=== PATIENT | male | born 1980 | race Caucasian/White ===

== ENCOUNTER 2018-10-14 14:12 | Outpatient (CLI) | payer BC ==
--- NOTE | 2018-10-15 14:01 | MRI ---
MRI OF THE LUMBAR SPINE 10/14/18 COMPARISON: None. HISTORY: Low back pain radiating down the right hip, radiculopathy. TECHNIQUE: Multiplanar and multisequence MR imaging of the lumbar spine obtained without contrast. FINDINGS: The sagittal STIR imaging demonstrates no focal area of osseous marrow edema. There is no anterolisth esis or retrolisthesis seen within the lumbar spine. Assuming five lumbar type vertebral bodies, the conus medullaris terminates at T12-L1. T12-L1: Intervertebral disc height and signal intensity within normal limits with no central canal or neural foraminal stenosis. L1-2: Mild bilateral facet hypertrophy. Intervertebral disc height and signal intensity within normal limits with no central canal or neural foraminal stenosis. L2-3: Mild bilateral facet hypertrophy. Intervertebral disc height and signal intensity within normal limits with no significant central canal or neural foraminal stenosis. L3-4: Mild bilateral facet hypertrophy. Intervertebral disc height and signal intensity within normal limits with no central canal or neural foraminal stenosis. L4-5: There is disc space narrowing and disc desiccation and disc bulge with a large central/sight pa racentral disc herniation. Disc herniation measures approximately 1.1 cm AP dimension and 1.6 cm cran iocaudal dimension. There is moderate associated central canal stenosis/right lateral recess stenosis . Mild bilateral facet hypertrophy with mild bilateral neural foraminal stenosis, right greater than left. L5-S1: Mild disc space narrowing. No significant central canal or neural foraminal stenosis. Imaged retroperitoneal structures demonstrate a tiny T2 hyperintensity within the right kidney measur ing 7 mm, too small to characterize, likely representing a cyst. IMPRESSION: Disc herniation at L4-5 with associated central canal and neural foraminal stenosis as detailed above . POS: [facility]
== END 2018-10-14 14:13 | disposition home or self-care (01) ==
LOC: SCSMRI 14:12
PROVIDERS: ATTEND Family Medicine
DX: M51.16 Intervertebral disc disorders with radiculopathy, lumbar region (principal); M48.061 Spinal stenosis, lumbar region without neurogenic claudication
CPT/HCPCS: 72148

== ENCOUNTER 2019-03-19 09:09 | Outpatient (CLI) | payer BC ==
--- NOTE | 2019-03-19 09:29 | RAD ---
XR Lumbar Spine 2 Or 3 View: 03/19/2019 12:00 AM Lumbar back pain with right-sided leg pain for 2 year COMPARISON: MR lumbar spine dated October 14, 2018 FINDINGS: Fracture: None. Alignment: Spinal alignment appears within normal limits. No abnormal translational motion demonstrated. Degenerative Change: Mild facet osteoarthrosis and disc degenerative disease of the lower lumbar spi ne most pronounced at L4-5 and L5-S1. Bone Mineralization:Normal Soft tissues: No acute abnormality. IMPRESSION: Mild spondylosis of the lumbar spine. No abnormal translational motion.
== END 2019-03-19 09:10 | disposition home or self-care (01) ==
LOC: TBSIIMAG 09:09
PROVIDERS: ATTEND Neurological Surgery
DX: M51.26 Other intervertebral disc displacement, lumbar region (principal); M47.816 Spondylosis without myelopathy or radiculopathy, lumbar region
CPT/HCPCS: 72100

== ENCOUNTER 2019-03-23 18:00 | Outpatient (CLI) | payer BC | END 2019-03-23 18:01 | disposition home or self-care (01) | LOC: SLEEPLAB 18:00 | PROVIDERS: ATTEND Internal Medicine Critical Care Medicine | DX: G47.33 Obstructive sleep apnea (adult) (pediatric) (principal); G31.84 Mild cognitive impairment of uncertain or unknown etiology; E66.9 Obesity, unspecified; Z68.31 Body mass index [BMI] 31.0-31.9, adult | CPT/HCPCS: 95806 ==

== ENCOUNTER 2019-04-14 08:41 | Outpatient (CLI) | payer BC ==
[2019-04-14 17:04] LABS: Hemoglobin 15.8 g/dL (14.0-18.0); Mean Corpuscular HGB CONC 34.3 g/dL (32.0-36.0); Mean Corpuscular Hemoglobin 30.2 pg (27.0-31.0); Mean Corpuscular Volume 88.1 fL (78.0-98.0); Mean Platelet Volume 8.3 fL (7.4-10.4); Platelet Count 281 thou/uL (130-400); RBC Distribution Width 11.9 % (11.5-14.5); Red Blood Cell (RBC) Count 5.22 mill/uL (4.70-6.10); White Blood Cell (WBC) Count 8.7 thou/uL (4.8-10.8)
[2019-04-14 17:11] LABS: INR-International Normal Ratio 0.9; PTT 28.4 SEC (22.9-36.1); Prothrombin Time 12.5 SEC (12.0-14.7)
== END 2019-04-14 08:42 | disposition home or self-care (01) ==
LOC: LABBT 08:41
PROVIDERS: ATTEND Neurological Surgery
DX: Z01.812 Encounter for preprocedural laboratory examination (principal); M51.26 Other intervertebral disc displacement, lumbar region
CPT/HCPCS: 85027; 85610; 85730

== ENCOUNTER 2019-04-16 10:42 | Day surgery (SDC) | payer BC ==
[2019-04-14 15:41] VITALS: BMI 32.5
--- NOTE | 2019-04-15 11:48 | HP ---
CHIEF COMPLAINT: I am here for back surgery. HISTORY OF PRESENT ILLNESS: A 38-year-old male with 22 months history of back and right leg pain. States he has difficulty standing upright or walking any distance. Oral steroids, physical therapy has helped, but the pain has returned. He had another flare-up last spring, resulting in spine injections and physical therapy which helped and now has no longer helped. Denies left leg pain. There are no bowel or bladder issues. Pain follows L5 to the foot on the right. It is much worse standing and sitting or bending over. REVIEW OF SYSTEMS: CONSTITUTIONAL: Denies fever, chills, weight loss, night sweats, or loss of energy. HEENT: Denies double vision, blurred vision, or difficulty swallowing. CARDIOVASCULAR/RESPIRATORY: Denies chest pain, shortness of breath, or cough. GASTROINTESTINAL: Denies indigestion, vomiting, or black stool. GENITOURINARY: Denies burning urination, blood in urine, or incontinence. MUSCULOSKELETAL: Right leg pain. NEUROLOGIC: Right leg numbness. PSYCHIATRY: Denies anxiety, hallucinations, or personal changes. PAST MEDICAL HISTORY: Abdominal pain with urination, digestive issues, microhematuria. PAST SURGICAL HISTORY: Oral, ingrown toenail. FAMILY HISTORY: Father alive. Mother alive. Siblings alive. Paternal grandfather alive. Paternal grandmother alive. Maternal grandfather alive. Maternal grandmother alive. One brother and one sister, healthy. SOCIAL HISTORY: Nonsmoker. Does not drink alcohol. Does not use drugs. MEDICATIONS: 1. Pepto-Bismol. 2. Claritin. 3. Sudafed. 4. Mucinex. 5. Tylenol. PHYSICAL EXAMINATION: VITAL SIGNS: Weight 37, height 71 inches. NEUROLOGIC: Cranial nerves are intact. CEREBELLAR EXAM: There is no truncal ataxia. Gait and station are normal. Toe-heel and tandem walking are performed smoothly without weakness or apraxia. Motor exam, there is normal strength in the iliopsoas, quadriceps, hamstrings, anterior tib, gastroc, and toes flexors. EHL weaker on the right. Sensory exam , there is no dermatomal hypoactive and symmetric knees, ankles. No Babinski. No clonus. ASSESSMENT: Lumbar radiculopathy and intervertebral disk disorder with radiculopathy of the lumbar region. IMAGING STUDIES: MRI shows a very large HNP at L4-5 in canal and eccentric to right. Lots of stretch of the L5 root. PLAN: Laminectomy and microdiscectomy at levels L4-L5. INFORMED CONSENT: We discussed the indications, risks, benefits, alternatives, and expected results from surgery. The risks discussed include, but were not limited to bleeding, infection, CSF leak, nerve damage, weakness, incontinence, cauda equina injury, paralysis, ventilator dependence, wheelchair dependence, loss of vision, cardiopulmonary complications of anesthesia, or . Long-term complications discussed included, but were not limited to, spinal instability and future surgery. He understands the risk, and he is willing to proceed. Job ID: [id number] [facility]
[2019-04-16] MEDS ORDERED: PROPOFOL 200 MG/20 ML VIAL ONE (10:49)
[2019-04-16] MEDS ORDERED: Rocuronium Bromide 10 MG/ML (10ML VIAL) ONE (10:49)
[2019-04-16] MEDS ORDERED: Ondansetron PF 4 MG/2 ML Vial ONE ×2 (10:49→17:41)
[2019-04-16] MEDS ORDERED: Lidocaine 1% PF 5 ML VIAL ONE (10:49)
[2019-04-16] MEDS ORDERED: Glycopyrrolate 0.2 MG/ML 5 ML SYRINGE ONE (10:49)
[2019-04-16] MEDS ORDERED: Dexamethasone 20 MG/5 ML VIAL ONE (10:49)
[2019-04-16] MEDS ORDERED: Thrombin 5000 UNITS/5 ML VIAL ONE (11:25)
[2019-04-16] MEDS ORDERED: Bupivacaine PF 0.5% 30 ML VIAL ONE (11:25)
[2019-04-16] MEDS ORDERED: EPINEPHrine 1 MG/ML AMP ONE (11:25)
[2019-04-16] MEDS ORDERED: Fentanyl 100 MCG/2 ML VIAL ONE ×3 (12:41→16:16)
[2019-04-16] MEDS ORDERED: Fleet Enema 133 ML BOT PR PRN (15:28)
[2019-04-16] MEDS ORDERED: Morphine 4 MG/ML VIAL SLOW IVP PRN (15:28)
[2019-04-16] MEDS ORDERED: Acetaminophen 650 MG Suppository PR PRN (15:28)
[2019-04-16] MEDS ORDERED: Promethazine HCl 25 MG/ML VIAL IM PRN (15:28)
[2019-04-16] MEDS ORDERED: Bisacodyl 10 MG SUPP PR PRN (15:28)
[2019-04-16] MEDS ORDERED: Promethazine HCl 12.5 MG SUPP PR PRN (15:28)
[2019-04-16] MEDS ORDERED: Acetaminophen/Codeine 30-300mg Tablet PO PRN ×2 (15:28)
[2019-04-16] MEDS ORDERED: Morphine 2 MG/ML SYRINGE SLOW IVP PRN (15:28)
[2019-04-16] MEDS ORDERED: Ondansetron PF 4 MG/2 ML Vial IVP PRN ×2 (15:28→18:30)
[2019-04-16] MEDS ORDERED: Promethazine 25 MG TAB PO PRN (15:28)
[2019-04-16] MEDS ORDERED: Milk Of Magnesia 30 ML UDCUP PO PRN (15:28)
[2019-04-16] MEDS ORDERED: Acetaminophen 325 MG TAB PO PRN (15:28)
[2019-04-16] MEDS ORDERED: tiZANidine HCl 4 MG TAB PO PRN (15:28)
[2019-04-16] MEDS ORDERED: traMADol HCl 50 MG TAB PO PRN ×2 (15:28)
[2019-04-16] MEDS ORDERED: diphenhydrAMINE 50 MG/ML VIAL IVP PRN (15:28)
[2019-04-16] MEDS ORDERED: diphenhydrAMINE 25 MG CAP PO PRN (15:28)
[2019-04-16] MEDS ORDERED: Ketorolac Tromethamine 30 MG/ML VIAL ONE (16:07)
--- NOTE | 2019-04-16 16:24 | OP ---
DATE OF PROCEDURE: 04/16/2019 SERVICE: Neurosurgery. OYSTER PREPARER: Sander Swain PA-C PREOPERATIVE INDICATION: Treat pain and prevent neurological deterioration. PREOPERATIVE DIAGNOSES: Lumbar intervertebral disk herniation at L4-L5 with significant lumbar stenosis and right greater than left L5 radiculopathy. POSTOPERATIVE DIAGNOSES: Lumbar intervertebral disk herniation at L4-L5 with significant lumbar stenosis and right greater than left L5 radiculopathy. PROCEDURES PERFORMED: Decompressive laminectomy with medial facetectomy and foraminotomy at L4-L5, microdiskectomy at right L4-L5, operating microscope. PREOPERATIVE MEDICATION: Ancef 2 g IV. DRAIN NUMBER: Zero DRAIN TYPE: None. DESCRIPTION OF PROCEDURE: The patient was brought to the operating room. General endotracheal anesthesia was induced. The patient was positioned on the operating table with his chest and hips supported by gel-filled chest rolls. A lateral fluoro radiograph was used to plan our incision. The lumbar skin was sterilely prepped and draped. We opened with a 10-blade knife, and we controlled bleeding with bipolar and monopolar cautery. We dissected through subcutaneous tissues to the thoracodorsal fascia. We incised the fascia in the midline and reflected the paraspinal muscles off the spinous process and lamina of L4 and L5. A self-retaining retractor was placed, and a lateral fluoro radiograph confirmed the level upon which we were operating. The operating microscope was brought into the field. Under microscopic magnification and using microsurgical techniques, we removed the spinous process of L4, thinned the lamina of L4, and we thinned the lamina of L5 as well. With Kerrison rongeurs, we fashioned a laminectomy from the pedicles of L4 past the pedicles of L5. We removed the yellow ligament in a piecemeal fashion. In order to decompress the lateral recesses, we had to perform medial facetectomies on both sides and foraminotomies over the exiting L5 nerve roots. With enough nerve root decompression, we could mobilize the thecal sac medially. We coagulated epidural veins with gentle bipolar cautery. We medialized the L5 nerve root on the right side, and we incised the protruding disk in the ventral epidural space. Some disk fragments came out immediately and others needed to be expressed with pressure. We reached inside the hole in the annulus fibrosus to remove multiple loose fragments of disk. The remainder of the disk was firmly adherent to the endplates of the L4 and L5 vertebral bodies. We probed the ventral epidural space and found that there were no more loose fragments of disk. A Quintanilla ball probe was passed through the lateral recess and out the foramen with each of the L5 nerve roots, and there was no compression. We irrigated with bacitracin irrigation. We infused local anesthetic in the paraspinal muscles. We closed the wound in anatomical layers. We applied a sterile dressing. This was a clean case, no contamination. Job ID: [id number]
[2019-04-16] MEDS ORDERED: Promethazine HCl 25 MG/ML VIAL ONE (17:42)
[2019-04-16] MEDS ORDERED: Sodium Chloride 0.9% 10 ML ONE (17:42)
[2019-04-16] MEDS ORDERED: Sodium Chloride 0.9% 1,000 ML IV SCH (18:15)
[2019-04-16] MEDS ORDERED: Tamsulosin HCl 0.4 MG CAP PO SCH (18:30)
[2019-04-16] MEDS ORDERED: CEFAZOLIN 2 GM in Premix Bag 1 BAG IVPB SCH (20:00)
[2019-04-16] MEDS ORDERED: Scopolamine 1.5 mg/72 hour Patch TD SCH (21:00)
[2019-04-17] MEDS ORDERED: Tamsulosin HCl 0.4 MG CAP PO SCH (06:00)
== END 2019-04-16 19:05 | disposition home or self-care (01) ==
LOC: SDC 10:42
PROVIDERS: ATTEND Neurological Surgery
PROC: 0ST20ZZ Resection of Lumbar Vertebral Disc, Open Approach (ICD-10-PCS; principal; 2019-04-16)
DX: M48.061 Spinal stenosis, lumbar region without neurogenic claudication (principal); M51.16 Intervertebral disc disorders with radiculopathy, lumbar region; Z79.899 Other long term (current) drug therapy; Z91.048 Other nonmedicinal substance allergy status
CPT/HCPCS: 76000; J0171; J0690; J1100; J1885; J2001; J2405; J2550; J2704; J3010; J3490; S0020